=== PATIENT | male | born 1990 | race Caucasian/White ===

== ENCOUNTER 2017-06-17 16:11 | Emergency (ER) | payer BC, OTHER ==
[~2017-06-17] VITALS: Ht 182.9 cm; Wt 72.6 kg
--- NOTE | 2017-06-17 16:45 | NUR ---
LAC #18 IV ACCESS .BLOOD SAMPLE COLLECTED SENT TO LAB
[2017-06-17 16:49] LABS: BASOPHILS % (AUTO) 0.7 % (0.0-2.0); EOSINOPHILS % (AUTO) 1.1 % (0.0-6.0); HEMATOCRIT 45 % (39-51); HEMOGLOBIN 15.4 g/dL (13.5-17.5); LYMPHOCYTES # (AUTO) 1.5 /CMM (0.8-4.8); LYMPHOCYTES % (AUTO) 24.2 % (20.0-44.0); MEAN CORPUSCULAR HGB CONC 34 g/dl (31.0-36.0); MEAN CORPUSCULAR VOLUME 86 fL (80-96); MONOCYTES # (AUTO) 0.4 /CMM (0.1-1.30); MONOCYTES % (AUTO) 6.3 % (2.0-12.0); NEUTROPHILS # (AUTO) 4.2 /CMM (1.8-8.9); NEUTROPHILS % (AUTO) 67.7 % (43.0-81.0); PLATELET COUNT (AUTO) 233 /CMM (150-450); RED BLOOD CELL COUNT(AUTO) 5.21 MIL/uL (4.5-6.0); WHITE BLOOD COUNT (AUTO) 6.2 K/uL (4.3-11.0)
--- NOTE | 2017-06-17 16:52 | NUR ---
PT TAKEN TO CT
--- NOTE | 2017-06-17 16:56 | NUR ---
headache s/p syncopal episode at home
[2017-06-17 17:00] LABS: CALCIUM, SERUM 9.5 mg/dL (8.5-10.1); CARBON DIOXIDE 23 mmol/L (21-32); CHLORIDE 103 mmol/L (98-107); CREATININE 1.3 mg/dL (0.6-1.3); GLUCOSE 152 mg/dL (74-106); POTASSIUM 4.2 mmol/L (3.5-5.1); SODIUM SERUM 138 mmol/L (136-145); UREA NITROGEN, BLOOD 15 mg/dL (7-18)
[2017-06-17] MEDS ORDERED: IV NS 0.9% 1,000 ML BAG IV ONE (17:00)
[2017-06-17 17:03] LABS: INR 0.91 (0.85-1.15)
[2017-06-17 17:12] LABS: ALCOHOL, BLOOD < 3 mg/dL (0-0)
--- NOTE | 2017-06-17 17:22 | NUR ---
URINE SAMPLE COLLECTED SENT TO LAB
--- NOTE | 2017-06-17 17:48 | NUR ---
IV removed. Catheter intact and site benign. Pressure and 4x4 applied to site. No bleeding noted.
--- NOTE | 2017-06-17 17:49 | NUR ---
Patient discharged to home in stable condition. Written and verbal after care instructions given. Patient verbalizes understanding of instruction.
[2017-06-17 17:50] VITALS: BP 120/74
== END 2017-06-17 17:50 | disposition home or self-care (01) ==
LOC: ER 16:13
DX: S00.03XA Contusion of scalp, initial encounter (principal); R55 Syncope and collapse; F12.90 Cannabis use, unspecified, uncomplicated; R56.9 Unspecified convulsions; W01.198A Fall on same level from slipping, tripping and stumbling with subsequent striking against other object, initial encounter; Y93.89 Activity, other specified; Y92.89 Other specified places as the place of occurrence of the external cause; Y99.8 Other external cause status
CPT/HCPCS: 36415; 70450; 80048; 80305; 85025; 85730; 93005; 96360; 99285; A4606; G0480; J7030; Z7610